=== PATIENT | male | born 1950 | race Asian ===

== ENCOUNTER 2017-05-08 08:37 | Inpatient (IN) | payer OTHER, MEDICARE ==
[~2017-05-08] VITALS: Ht 160 cm; Wt 80.1 kg
[2017-05-08] MEDS ORDERED: BENA20TA3 PO (08:44)
[2017-05-08] MEDS ORDERED: ASPIRIN 81MG TABLET PO STA (08:47)
[2017-05-08] MEDS ORDERED: ENOXAPARIN 80MG/0.8ML SYR SUBCUT ONE (09:00)
[2017-05-08] MEDS ORDERED: DILTIAZEM HCL 5MG/ML 5ML VIAL IV ONE (09:00)
[2017-05-08 09:14] LABS: PARTIAL THROMBOPLASTIN TIME 26.4 sec (23.4-31.0); PROTHROMBIN TIME 10.4 sec (9.4-11.6)
[2017-05-08 09:20] LABS: BASOPHILS % 0.7 % (0.0-2.0); EOSINOPHILS % 0.9 % (0.0-5.0); HEMATOCRIT. 27.9 % (42.0-52.0); HEMOGLOBIN. 9.3 g/dL (14.0-18.0); LYMPHOCYTES % 13.3 % (20.0-50.0); MEAN CORPUSCULAR HEMOGLOBIN 25.2 pg (28.0-32.0); MEAN CORPUSCULAR VOLUME 75.9 fL (80.0-94.0); MEAN PLATELET VOLUME 8.7 fl (7.4-10.4); MONOCYTES % 5.7 % (2.0-8.0); NEUTROPHILS % 79.4 % (40.0-76.0); PLATELET 160 x1000/uL (130-400); RED BLOOD CELL COUNT 3.68 mill/uL (4.7-6.1); RED CELL DISTRIBUTION WIDTH 14.6 % (11.6-14.6)
[2017-05-08 09:24] LABS: CARBON DIOXIDE 19 mEq/L (21-32); CHLORIDE 105 mEq/L (98-107); CREATINE KINASE 68 IU/L (39-308); T4 FREE 1.24 ng/dL (0.76-1.46); TROPONIN I < 0.02 ng/mL (0.00-0.04)
[2017-05-08 09:29] LABS: CREATINE KINASE MB FRACTION 1.2 ng/mL (0.5-3.6)
[2017-05-08] MEDS ORDERED: DILTIAZEM HCL 30MG TABLET PO ONE (14:00)
[2017-05-08] MEDS ORDERED: ONDANSETRON HCL 4MG/2ML VIAL IV PRN (22:30)
[2017-05-08] MEDS ORDERED: DEXTROSE 50% WATER 50ML SYRINGE IV PRN (22:30)
[2017-05-08] MEDS ORDERED: CLONIDINE 0.1MG TABLET PO PRN (22:30)
[2017-05-08] MEDS ORDERED: DIPHENHYDRAMINE 50MG/ML VIAL IV PRN (22:30)
[2017-05-08] MEDS ORDERED: MAGNESIUM/ALUMINUM HYDROXIDE/SIMETHICONE 30ML UDC PO PRN (22:30)
[2017-05-08] MEDS ORDERED: ACETAMINOPHEN 325MG TABLET PO PRN (22:30)
[2017-05-09] MEDS: BLOOD SUGAR DIAGNOSTIC STRIP TEST SCH ×4 (08:11→21:00)
[2017-05-09] MEDS: APIXABAN 5 MG TABLET PO SCH ×2 (10:24→17:26)
[2017-05-09] MEDS: INSULIN LISPRO 100 UNITS/ML SUBCUT SCH ×4 (10:36→21:50)
[2017-05-09 10:51] VITALS: BP 166/45
[2017-05-09] MEDS ORDERED: GLYB5TAB7 PO (11:09)
[2017-05-09 12:00] VITALS: BP 129/38
[2017-05-09] MEDS: DILTIAZEM HCL 60MG TABLET PO SCH ×2 (13:06→17:27)
[2017-05-09 16:00] VITALS: BP 149/42
[2017-05-09] MEDS: SODIUM CHLORIDE 0.9% INJ 3ML FLUSH IVF SCH ×2 (17:28→21:51)
[2017-05-09 20:00] VITALS: BP 158/39
[2017-05-09] MEDS: BENAZEPRIL 10MG TABLET PO SCH (21:40)
[2017-05-10] VITALS: BP 131/36
[2017-05-10 04:00] VITALS: BP 104/37
[2017-05-10] MEDS: BLOOD SUGAR DIAGNOSTIC STRIP TEST SCH ×2 (06:19→11:45)
[2017-05-10] MEDS: SODIUM CHLORIDE 0.9% INJ 3ML FLUSH IVF SCH (06:19)
[2017-05-10] MEDS: INSULIN LISPRO 100 UNITS/ML SUBCUT SCH ×2 (06:19→12:15)
[2017-05-10] MEDS: APIXABAN 5 MG TABLET PO SCH (06:19)
[2017-05-10] MEDS ORDERED: GLYBURIDE 2.5MG TABLET PO SCH (06:45)
[2017-05-10] MEDS ORDERED: GLYBURIDE 5MG TABLET PO SCH (06:45)
[2017-05-10 08:00] VITALS: BP 143/45
[2017-05-10 12:00] VITALS: BP 167/45
[2017-05-10] MEDS: BENAZEPRIL 10MG TABLET PO SCH (12:08)
[2017-05-10] MEDS ORDERED: HYDRALAZINE HCL 50MG TABLET PO SCH (14:00)
[2017-05-10 15:35] VITALS: BP 145/46
== END 2017-05-10 16:15 | disposition home or self-care (01) | DRG 309 ==
LOC: ER 08:55 → 5WST 09:15 → EDBEDREQ 09:16 → ENRESERV 05-09 07:30
PROVIDERS: ADMIT Internal Medicine; ATTEND Internal Medicine
DX: I48.0 Paroxysmal atrial fibrillation (principal); E87.2 Acidosis; I47.1 Supraventricular tachycardia; I11.9 Hypertensive heart disease without heart failure; E78.00 Pure hypercholesterolemia, unspecified; R07.89 Other chest pain; Z83.3 Family history of diabetes mellitus; E11.9 Type 2 diabetes mellitus without complications
CPT/HCPCS: 36415; 71045; 80053; 82550; 82553; 82962; 83036; 83690; 83880; 84439; 84443; 84484; 85025; 85610; 85730; 93005; 93306; 93970; 96374; 99291; J1650; J1815; J3490

== ENCOUNTER 2023-01-06 12:01 | Emergency (ER) | payer OTHER, MEDICARE ==
[~2023-01-06] VITALS: Ht 165.1 cm; Wt 82.0 kg
[~2023-01-06 12:01] MED LIST: BENA-8 PO; GLYB5TAB7 PO
[2023-01-06 12:12] VITALS: O2SAT 100
[2023-01-06 13:16] LABS: BASOPHILS % 0.6 % (0.0-2.0); EOSINOPHILS % 1.5 % (0.0-5.0); HEMATOCRIT. 22.5 % (42.0-52.0); LYMPHOCYTES % 12.9 % (20.0-50.0); MEAN CORPUSCULAR HGB CONC 35.5 g/dL (31.0-37.0); MEAN CORPUSCULAR VOLUME 95.9 fL (80.0-94.0); MEAN PLATELET VOLUME 9.2 fl (7.4-10.4); MONOCYTES % 5.8 % (2.0-8.0); NEUTROPHILS % 79.2 % (40.0-76.0); PLATELET 106 x1000/uL (130-400); RED BLOOD CELL COUNT 2.35 mill/uL (4.7-6.1); RED CELL DISTRIBUTION WIDTH 16.3 % (11.6-14.6); WHITE BLOOD COUNT 4.2 x1000/uL (4.5-11.0)
[2023-01-06 14:48] LABS: CHLORIDE 104 mEq/L (98-107); INDEX HEMOLYSI 2 (1-3); INDEX ICTERIC 1 (1-4); INDEX LIPEMIC 2 (1-3); POTASSIUM 3.3 mEq/L (3.5-5.1); SODIUM 134 mEq/L (136-145)
[2023-01-06 14:58] LABS: ALANINE AMINOTRANSFERASE 24 IU/L (13-61); ALBUMIN 2.8 g/dL (3.4-5.0); ASPARTATE AMINOTRANSFERASE 23 IU/L (15-37); BILIRUBIN TOTAL 0.2 mg/dL (0.1-1.0); CALCIUM 7.6 mg/dL (8.5-10.1); CARBON DIOXIDE 24 mEq/L (21-32); CREATININE 3.2 mg/dL (0.6-1.3); GLUCOSE 189 mg/dL (70-105); PROTEIN TOTAL 6.6 g/dL (6.0-8.3); TROPONIN I HIGH SENSITIVITY 23 ng/L (<78); UREA NITROGEN BLOOD 35 mg/dL (7-21)
[2023-01-06] MEDS ORDERED: MECLIZINE 25MG TABLET PO ONE (15:30)
[2023-01-06] MEDS ORDERED: ACETAMINOPHEN 325MG TABLET PO ONE (17:00)
[2023-01-06 17:51] VITALS: BP 149/88; PULSE 70; RESP 18; TEMP 98.3
== END 2023-01-06 17:52 | disposition home or self-care (01) ==
LOC: ER 12:01
DX: R42 Dizziness and giddiness (principal); I12.0 Hypertensive chronic kidney disease with stage 5 chronic kidney disease or end stage renal disease; E11.22 Type 2 diabetes mellitus with diabetic chronic kidney disease; N18.6 End stage renal disease; Z99.2 Dependence on renal dialysis
CPT/HCPCS: 99285; 70450; 71045; 80053; 83605; 85025; 84484; 36415; 93005; J8597

== ENCOUNTER 2023-11-22 11:55 | Emergency (ER) | payer MEDICARE, OTHER ==
[~2023-11-22] VITALS: Ht 165.1 cm; Wt 75.0 kg
[2023-11-22 11:57] VITALS: O2SAT 94
[2023-11-22] MEDS ORDERED: ACETAMINOPHEN 325MG TABLET PO STA (12:05)
[2023-11-22] MEDS: SODIUM CHLORIDE 0.9% 1000ML BAG (SEPSIS BOLUS) IV ONE (12:29)
[2023-11-22] MEDS: ONDANSETRON HCL 4MG/2ML INJ IV STA (12:30)
[2023-11-22 12:34] LABS: HEMATOCRIT. 33.8 % (42.0-52.0); HEMOGLOBIN. 11.2 g/dL (14.0-18.0); MEAN CORPUSCULAR HEMOGLOBIN 32.9 pg (28.0-32.0); MEAN CORPUSCULAR HGB CONC 33.2 g/dL (31.0-37.0); MEAN PLATELET VOLUME 7.6 fl (7.4-10.4); PLATELET 78 x1000/uL (130-400); RED BLOOD CELL COUNT 3.41 mill/uL (4.7-6.1); RED CELL DISTRIBUTION WIDTH 17.4 % (11.6-14.6)
[2023-11-22 12:41] LABS: CHLORIDE 105 mEq/L (98-107); DIFFERENTIAL COMMENT 1; POTASSIUM 4.5 mEq/L (3.5-5.1); SODIUM 140 mEq/L (136-145)
[2023-11-22 12:42] LABS: CALCIUM 8.7 mg/dL (8.7-10.4); CARBON DIOXIDE 22 mEq/L (21-32)
[2023-11-22] MEDS: ACETAMINOPHEN 500MG TABLET PO NR (12:45)
[2023-11-22 12:47] LABS: GLUCOSE 157 mg/dL (70-105); UREA NITROGEN BLOOD 29 mg/dL (9-23)
[2023-11-22 12:48] LABS: LACTIC ACID 2.8 mmol/L (0.4-2.0); TROPONIN I HIGH SENSITIVITY 26 ng/L (3.0-53)
[2023-11-22 12:49] LABS: ALANINE AMINOTRANSFERASE 21 IU/L (10-49); ALBUMIN 3.9 g/dL (3.2-4.8); ASPARTATE AMINOTRANSFERASE 26 IU/L (<34); BILIRUBIN DIRECT 0.2 mg/dL (<=3.0)
[2023-11-22 12:50] LABS: BILIRUBIN TOTAL 0.4 mg/dL (0.1-1.0); PROTEIN TOTAL 6.7 g/dL (6.0-8.3)
[2023-11-22] MEDS: CEFTRIAXONE 2GM/50ML 50 ML IV STA (13:07)
[2023-11-22 13:24] LABS: CREATININE 6.1 mg/dL (0.6-1.3)
[2023-11-22] MEDS: HYDROCODONE/ACETAMINOPHEN 5/325MG TABLET PO STA (14:37)
[2023-11-22 15:27] LABS: NUCLEATED RED BLOOD CELLS 1 /100 WBC
[2023-11-22 15:28] LABS: ANISOCYTOSIS 1+; PLATELET ESTIMATE DECREASED
[2023-11-22 17:37] VITALS: BP 137/31; PULSE 55; RESP 17; TEMP 99
== END 2023-11-22 18:00 | disposition short-term general hospital (02) ==
LOC: ER 11:55 → EDBD 11:55 → EDBEDREQ 14:30 → ER 18:00
DX: R50.9 Fever, unspecified (principal); D72.819 Decreased white blood cell count, unspecified; E11.22 Type 2 diabetes mellitus with diabetic chronic kidney disease; I12.0 Hypertensive chronic kidney disease with stage 5 chronic kidney disease or end stage renal disease; N18.6 End stage renal disease; Z99.2 Dependence on renal dialysis; Z98.890 Other specified postprocedural states
CPT/HCPCS: 99291; 96365; 96366; 96375; 87426; 80076; 80048; 83605; 85025; 85610; 87040; 87186; 84484; 87077; 36415; 84145; 71045; 93005; J0696; J2405; J7030